=== PATIENT | male | born 1970 | race Caucasian/White ===

== ENCOUNTER 2017-03-04 13:52 | Observation (INO) | payer OTHER ==
--- NOTE | 2017-03-04 14:03 | EDPHY ---
H & P Source: Patient Exam Limitations: No limitations - Family History Significant Family History: No pertinent family hx Time Seen by Provider: 03/04/17 14:00 HPI/ROS: CHIEF COMPLAINT: AICD fired HISTORY OF PRESENT ILLNESS: The patient has a history of AICD placed 7 years ago for VT. At that point time he had a negative angiogram. 4 years ago the patient had an ablation and has been asymptomatic since that time. Today he was playing soccer when his AICD reportedly fired 15-20 times. He denied any antecedent presyncope, chest pain or shortness of breath. The patient does have a history of PVCs. The patient takes no regular medications. The patient has had no history of recent illness or additional acute complaints. REVIEW OF SYSTEMS: A comprehensive 10 point review of systems is otherwise negative aside from elements mentioned in the history of present illness. (Clay Felder) - Medical/Surgical History PMH: Past medical history: History ventricular tachycardia status AICD placement and ablation (Clay Felder) - Physical Exam Exam: General Appearance: Alert, no distress Eyes: Pupils equal and round no pallor or injection ENT, Mouth: Mucous membranes moist Respiratory: There are no retractions, lungs are clear to auscultation Cardiovascular: Regular rate and rhythm Gastrointestinal: Abdomen is soft and nontender, no masses, bowel sounds normal Neurological: A&O, normal motor function, normal sensory exam, normal cranial nerves Skin: Warm and dry, no rashes Musculoskeletal: Neck is supple nontender Extremities: symmetrical, full range of motion (Clay Felder) Constitutional: Initial Vital Signs Temperature (C) 37.3 C 03/04/17 14:19 Heart Rate 97 03/04/17 14:19 Respiratory Rate 18 03/04/17 14:19 Blood Pressure 113/76 03/04/17 14:19 O2 Sat (%) 94 03/04/17 14:19 O2 Delivery Mode Room Air Allergies/Adverse Reactions: No Known Allergies Allergy (Unverified 06/24/11 18:15) Home Medications: Medication Instructions Recorded Metoprolol Succinate Xr [Toprol Xl] 50 mg PO DAILY 06/25/11 Medical Decision Making - Diagnostics EKG Interpretation: EKG: Complete interpretation has been separately recorded in the [employer] archive. Summary impression: Sinus rhythm, right axis deviation, nonspecific EKG changes are noted (Clay Felder) ED Course/Re-evaluation: The patient was placed on a monitor and storage bin tender. He has had no subsequent discharges of his AICD. The patient's EKG demonstrates a sinus rhythm with right axis deviation. Consultation was made with the [employer] rep who will interrogate the patient's pacemaker. I have also notified Dr. Heydi Diamond of the patient's presents to the emergency department and presenting symptoms. The noted to have mild hypokalemia. He did receive oral potassium replacement. A [employer] rep will get the patient AICD. Disposition will depend not resolved. The patient will be turned over to Dr. Augustin at shift change pending evaluation by the [employer] rep. (Clay Felder) The pacemaker has been interrogated and it is found that 1 of the leads for the AICD is not in correct position and was firing erroneously. Dr. Diamond is here to see the patient and she would like the patient admitted to her to telemetry on PCU and then the patient will have lead revision tomorrow. The AICD is currently turned off (Nigel Augustin) Differential Diagnosis: Differential diagnosis considered includes SVT, atrial fibrillation, ventricular tachycardia, ventricular fibrillation, symptomatic PVCs (Clay Felder) erroneus shock secondary to be lead placement (Nigel Augustin) - Data Points Laboratory Results: Laboratory Results 03/04/17 13:58 03/04/17 13:58 03/04/17 03/04/17 13:58 13:58 WBC 6.72 10^3/uL 10^3/uL (3.80-9.50) RBC 5.44 10^6/uL 10^6/uL (4.40-6.38) Hgb 17.1 g/dL g/dL (13.7-17.5) Hct 47.7 % % (40.0-51.0) MCV 87.7 fL fL (81.5-99.8) MCH 31.4 pg pg (27.9-34.1) MCHC 35.8 g/dL g/dL (32.4-36.7) RDW 12.7 % % (11.5-15.2) Plt Count 160 10^3/uL 10^3/uL (150-400) MPV 10.7 fL fL (8.7-11.7) Neut % (Auto) 54.9 % % (39.3-74.2) Lymph % (Auto) 34.1 % % (15.0-45.0) [place] % (Auto) 5.8 % % (4.5-13.0) Eos % (Auto) 3.9 % % (0.6-7.6) Baso % (Auto) 0.9 % % (0.3-1.7) Nucleat RBC Rel Count 0.0 % % (0.0-0.2) Absolute Neuts (auto) 3.69 10^3/uL 10^3/uL (1.70-6.50) Absolute Lymphs (auto) 2.29 10^3/uL 10^3/uL (1.00-3.00) Absolute Monos (auto) 0.39 10^3/uL 10^3/uL (0.30-0.80) Absolute Eos (auto) 0.26 10^3/uL 10^3/uL (0.03-0.40) Absolute Basos (auto) 0.06 10^3/uL 10^3/uL (0.02-0.10) Absolute Nucleated RBC 0.00 10^3/uL 10^3/uL (0-0.01) Immature Gran % 0.4 % % (0.0-1.1) Immature Gran # 0.03 10^3/uL 10^3/uL (0.00-0.10) Sodium 143 mEq/L mEq/L (134-144) Potassium 3.0 mEq/L L mEq/L (3.5-5.2) Chloride 103 mEq/L mEq/L (97-110) Carbon Dioxide 16 mEq/l L mEq/l (22-31) Anion Gap 24 mEq/L H mEq/L (8-16) BUN 12 mg/dL mg/dL (7-23) Creatinine 1.3 mg/dL mg/dL (0.7-1.3) Estimated GFR 60 Glucose 146 mg/dL H mg/dL (70-100) Calcium 9.5 mg/dL mg/dL (8.5-10.4) Magnesium 1.7 mg/dL mg/dL (1.6-2.3) Medications Given: Discontinued Medications Sodium Chloride (Ns) 1,000 mls @ 0 mls/hr IV EDNOW ONE; Wide Open PRN Reason: Protocol Stop: 03/04/17 14:57 Last Admin: 03/04/17 15:19 Dose: 1,000 mls Potassium Chloride (Potassium Chloride Oral Liquid) 40 meq PO EDNOW ONE Stop: 03/04/17 14:58 Last Admin: 03/04/17 15:17 Dose: 40 meq Departure - Departure Disposition: [facility] Clinical Impression: AICD malfunction Qualifiers: Encounter type: initial encounter Qualified Code(s): T82.118A - Breakdown ( mechanical) of other cardiac electronic device, initial encounter Condition: Good Referrals: Unknown,Unknown [Unknown] - As per Instructions
[2017-03-04 14:10] LABS: % IMMATURE GRANULYOCYTES 0.4 % (0.0-1.1); ABSOLUTE IMMATURE GRANULOCYTES 0.03 10^3/uL (0.00-0.10); ADD DIFF? NO; ADD MORPH? NO; ADD SCAN? NO; ATYPICAL LYMPHOCYTE FLAG 0 (0-99); FRAGMENT RBC FLAG 0 (0-99); HEMATOCRIT 47.7 % (40.0-51.0); HEMOGLOBIN 17.1 g/dL (13.7-17.5); LEFT SHIFT FLG 0 (0-99); LIPEMIA HEMOLYSIS FLAG 90 (0-99); MEAN CELL HEMOGLOBIN 31.4 pg (27.9-34.1); MEAN CELL HEMOGLOBIN CONCENTR. 35.8 g/dL (32.4-36.7); MEAN CELL VOLUME 87.7 fL (81.5-99.8); MEAN PLATELET VOLUME 10.7 fL (8.7-11.7); PLATELET CLUMPS FLAG 0 (0-99); PLATELET COUNT 160 10^3/uL (150-400); RED BLOOD CELL COUNT 5.44 10^6/uL (4.40-6.38); RED CELL DISTRIBUTION WIDTH 12.7 % (11.5-15.2)
--- NOTE | 2017-03-04 14:10 | CPEKG ---
Heart Rate: 93 RR Interval: 645 P-R Interval: 196 QRSD Interval: 100 QT Interval: 352 QTC Interval: 438 P [place]: 56 QRS [place]: 143 T Wave [place]: 3 EKG Severity - BORDERLINE ECG - EKG Impression: SINUS RHYTHM EKG Impression: RIGHT AXIS DEVIATION Electronically Signed By: Clay Felder 04-Mar-2017 15:11:04
[2017-03-04 14:42] LABS: ANION GAP 24 mEq/L (8-16); CALCIUM 9.5 mg/dL (8.5-10.4); CARBON DIOXIDE 16 mEq/l (22-31); CHLORIDE 103 mEq/L (97-110); CREATININE 1.3 mg/dL (0.7-1.3); GLOMERULAR FILTRATION RATE 60; GLUCOSE 146 mg/dL (70-100); MAGNESIUM 1.7 mg/dL (1.6-2.3); SODIUM 143 mEq/L (134-144)
[2017-03-04] MEDS ORDERED: NS 1,000 ML IV ONE (14:56)
[2017-03-04] MEDS ORDERED: POTASSIUM CL 20 MEQ/15 ML UDCUP PO ONE (14:57)
[2017-03-04] MEDS ORDERED: ONDANSETRON DISINTEGRATING 4 MG TAB PO PRN (16:08)
[2017-03-04] MEDS ORDERED: ACETAMINOPHEN 325 MG TAB PO PRN (16:08)
[2017-03-04] MEDS ORDERED: ONDANSETRON 4 MG/2 ML VIAL IVP PRN (16:08)
[2017-03-04 16:21] LABS: INR 1.05 (0.83-1.16); PROTIME(PATIENT) 13.6 SEC (12.0-15.0)
[2017-03-04 16:22] LABS: APTT 28.4 SEC (23.0-38.0)
--- NOTE | 2017-03-04 16:45 | GHP ---
[f rep st] HISTORY AND PHYSICAL DATE OF ADMISSION: 03/04/2017 PRIMARY VOCATIONAL EVALUATOR: Dean Oliver MD. PRIMARY CARE PHYSICIAN: Dr. Stiven Krishnan. CHIEF COMPLAINT: Implantable cardioverter-defibrillator discharge. HISTORY OF PRESENT ILLNESS: The patient is a very pleasant 46-year-old male with a history of idiopa thic VT. His history dates to 2006 when he had syncope while playing soccer. This occurred again in 2010. He has had normal stress tests. In 2011, he had a normal coronary angiogram and went on to h ave an EP study with Dr. Oliver which demonstrated inducible VT. At that time, he had a single-chamber [employer] ICD implanted. In October of 2011, he received shocks from his ICD. He was briefly on amioda arley and then switched back to metoprolol. In December 2011, he was seen by Dr. Eric Herring at the [facility] and underwent VT ablation. He had 2 PVC morphologies and had an ablation in the RV basal sept um to the tricuspid valve anulus. He has not had ICD discharge or demonstrable VT since that time. Other evaluation has included no significant mutations on CPVT genetic testing. Normal cardiac MRI. In 2012, he was having problems with T-wave over sensing and T-wave suppression was activated. The patient was in his normal state of good health and playing soccer today. He was having no sympto ms including no chest pain, palpitations, or presyncope. His ICD discharged 10 times in rapid succes rosita and he was brought to the emergency department. He never lost consciousness. He is currently i n sinus rhythm. I met him in the department and was at the bedside during his [employer] device inter rogation. In summary, he was shocked 10 times for what appears to be sinus tachycardia with T-wave over sensing . The lead impedance is normal. His pacing capture threshold is slightly high. Going back to 2011, the last time he had VT was right around the time of his ablation in December 2011. He currently feels fine, but is anxious about further ICD discharge. Again, no chest pain, palpitati ons, dyspnea, or loss of consciousness. REVIEW OF SYSTEMS: A full 10-point review was performed, was negative except that which is outlined in history of present illness. PAST MEDICAL HISTORY: 1. Idiopathic VT, status post ablation and ICD. 2. Dyslipidemia. OUTPATIENT MEDICATIONS: Statin, the patient does not recall dose. He is currently not on beta block er. SOCIAL HISTORY: The patient is single. He is an electrical designer drafter. He does not smoke cigarettes, drink alcohol to excess, nor does he drink caffeine. FAMILY HISTORY: Negative for arrhythmia. PHYSICAL EXAMINATION: VITAL SIGNS: Blood pressure 113/76, heart rate 97, oxygen saturation 94% on r oom air. He is afebrile. GENERAL: Well-appearing middle-aged male in no acute distress. HEENT: S clerae are clear and free of jaundice. Mucous members are moist. Normocephalic, atraumatic. CARDIO VASCULAR: JVP is less than 10. Carotids equal and 2+ without bruit. Regular rate and rhythm withou t murmur, rub, or gallop. LUNGS: Clear to auscultation without wheezes, rhonchi, or rales. ABDOMEN : Soft, nontender, nondistended without bruits, masses, or hepatosplenomegaly. EXTREMITIES: Warm a nd well perfused without cyanosis, clubbing, or edema. NEURO: Alert and oriented x3 without gross f ocal neurological deficits. Appropriate mood and affect. LABORATORY DATA: CBC is normal. Sodium 143, potassium 3, chloride 103, bicarb 16, BUN 12, creatinin e 1.3, glucose 146, magnesium 1.7. He did receive oral potassium supplementation in the emergency de partment. EKG from the ambulance shows sinus rhythm and occasional PVCs. EKG in the emergency department, revi ewed by me, shows sinus rhythm. Small inferior Q-waves Right axis deviation. Nonspecific interventr icular conduction delay. Normal QT interval. ASSESSMENT AND PLAN: A 46-year-old male with history of idiopathic ventricular tachycardia status po st ventricular tachycardia ablation in 2011 and [employer] single-chamber implantable cardioverter-def ibrillator. He now presents with multiple inappropriate implantable cardioverter-defibrillator shock s due to T-wave over sensing when his [place] rhythm was sinus tachycardia. In discussion with the [employer] paper sales representative, he already has T-wave suppression algorithm, and the re does not appear to be any other programming changes we can do to avoid this problem in the future. 1. History of ventricular tachycardia with malfunctioning implantable cardioverter-defibrillator girma byrne: For now, his defibrillator function is off. He will be observed on telemetry. I will discuss th e case with Dr. Rubio Sorto regarding lead revision. The patient, at this point, is considering pot entially leaving device therapies off. I explained that would leave him without the backup of his im plantable cardioverter-defibrillator. No indication for beta blockers at the present. Replete maxx sium. 2. We will also check an echocardiogram and a chest x-ray to ensure that lead position is normal. N ormal impedance of the lead is reassuring. He will be n.p.o. after midnight. 3. Dyslipidemia: Continue outpatient statin. 4. Low potassium: Replete. Repeat in the morning. /[id number]/MODL
[2017-03-04] MEDS ORDERED: PRAVASTATIN SODIUM 40 MG TAB PO SCH (21:00)
[2017-03-05 04:57] LABS: ALANINE AMINOTRANSFERASE 42 IU/L (21-72); ALBUMIN 3.5 g/dL (3.5-5.0); ALKALINE PHOSPHATASE 58 IU/L (38-126); ANION GAP 8 mEq/L (8-16); ASPARTATE AMINOTRANSFERASE 42 IU/L (17-59); BILIRUBIN,TOTAL 0.9 mg/dL (0.1-1.4); CALCIUM 9.1 mg/dL (8.5-10.4); CARBON DIOXIDE 25 mEq/l (22-31); CHLORIDE 108 mEq/L (97-110); CREATININE 1.1 mg/dL (0.7-1.3); GLOMERULAR FILTRATION RATE > 60; GLUCOSE 89 mg/dL (70-100); POTASSIUM 3.7 mEq/L (3.5-5.2); SODIUM 141 mEq/L (134-144)
--- NOTE | 2017-03-05 09:23 | CPEKG ---
Heart Rate: 67 RR Interval: 896 P-R Interval: 208 QRSD Interval: 108 QT Interval: 420 QTC Interval: 444 P [place]: 55 QRS [place]: 52 T Wave [place]: 12 EKG Severity - ABNORMAL ECG - EKG Impression: SINUS RHYTHM EKG Impression: INCOMPLETE RIGHT BUNDLE BRANCH BLOCK Electronically Signed By: Helder Kessler 06-Mar-2017 13:41:58
--- NOTE | 2017-03-05 11:26 | ASMTCMCOM ---
CM Note CM Note Notes: 03/05/2017 Case Management Note Met w/pt. Pt to have ICD repair today. Provided emergency contact phone numbers for pt since pt was transported urgently without any of his belongings. Pt to call family to arrange for visits and belongings to be bought to the hospital. No case management d/c needs identified d/t family support, pt age and activity levels prior to admission. Case Management d/c poc: Home independent when medically stable with follow up as directed. Date Signed: 03/05/2017 11:25 AM Electronically Signed By:Marcelle Wilburn RN
[2017-03-05] MEDS ORDERED: PNEUMOCOCCAL 0.5ML VACCINE VIAL IM ONE (11:36)
[2017-03-05] MEDS ORDERED: FLU VACC QS 2017-18 (3YR+)/PF 0.5 ML SYR (FLUARIX QUAD) IM ONE (11:36)
--- NOTE | 2017-03-05 14:45 | ECHO ---
[email or web address] [address] [address] Main: [phone] Fax: Transthoracic Echocardiogram Name: FREDERICK ESCUDERO MR#: [id number] Study Date: 03/05/2017 Study Time: 09:37 AM Date of : 1970 Age: 46 year(s) Height: 180.3 cm (71 in.) Weight: 83.92 kg (185 lb.) BSA: 2.04 m2 Gender: Male Examination: Echo Indication: ICD discharge, HX of VT Image Quality: Adequate Contrast: Requested by: Heydi Diamond BP: 107 mmHg/69 mmHg Heart Rate: Rhythm: Indication: ICD discharge, HX of VT Procedure Staff Custom Framing Specialist: Hannah Chowdary Reading Physician: Heydi Diamond Requesting Provider: Conclusions: Normal size left ventricle. No LV hypertrophy. Normal global systolic LV function. EF is 65 %. No regional wall motion abnormality. Mildly dilated right ventricle. Normal RV function. There is an ICD lead noted in the right ventricle. Moderate tricuspid regurgitation is present. The pulmonary artery pressure is normal. Measurements: Chambers Valvular Assessment AV/MV Valvular Assessment TV/PV Normal Normal Normal Name Value Range Name Value Range Name Value Range Ao Cynthia (MM): 2.9 cm (2.2 cm-3.7 AV Vmax: 1.08 m/s (1 m/s-1.7 TR Vmax: 2.15 mm/s ( - ) cm) m/s) TR PGmax: 18 mmHg ( - ) IVSd (2D): 0.7 cm (0.6 cm-1.1 AV maxP mmHg ( - ) syst. PAP: 23 mmHg ( - ) cm) LVOT Vmax: 0.96 m/s (0.7 m/s-1.1 LVDd (2D): 3.8 cm (4.2 cm-5.9 m/s) cm) MV E Vmax: 0.47 m/s ( - ) LVDs (2D): 2.5 cm (2.1 cm-4 MV A Vmax: 0.49 m/s ( - ) cm) MV E/A: 0.96 ( - ) LVPWd (2D): 0.7 cm (0.6 cm-1 cm) LVEF (BP): 65 % (>=55 %) RVDd(2D): 3.9 cm (1.9 cm-3.8 cmmm) Continued Measurements: Patient: FREDERICK ESCUDERO Study Date: 03/05/2017 Page 1 of 2 09:37 AM Chambers Valvular Assessment AV/MV Valvular Assessment TV/PV Name Value Name Value Name Value LADs Lon.6 cm MV DecTime: 313 m/s CVP (est.): 5 mmHg LA Area: 14.9 cm2 MV E' Septal: 0.08 m/s LA Volume: 36 ml MV E/E' Septal: 5.90 LA Volume Index: 17.6 ml/m2 MV E/E' Lateral: 3.70 TAPSE: 2.3 cm RA Area: 21.5 cm2 Findings: Left Ventricle: Normal size left ventricle. No LV hypertrophy. Normal global systolic LV function. EF is 65 %. No regional wall motion abnormality. Normal diastolic LV function. Right Ventricle: Mildly dilated right ventricle. Normal RV function. There is an ICD lead noted in the right ventricle. Left Atrium: The left atrium is normal in size. Right Atrium: The right atrium is mildly dilated. There is an ICD lead noted in the right atrium. Mitral Valve: The mitral valve is normal in appearance and function. Trivial mitral valve regurgitation. Aortic Valve: The aortic valve is normal in appearance and function. The aortic valve is tri-leaflet. There is no aortic valve regurgitation. Tricuspid Valve: The tricuspid valve is normal in appearance and function. Moderate tricuspid regurgitation is present. The pulmonary artery pressure is normal. Pulmonic Valve: The pulmonic valve is normal in appearance and function. There is no pulmonic regurgitation seen. Aorta: The aorta is normal. Normal size aortic root measuring 2.9 cm. Pericardium: No pericardial effusion. (No Signature Object) Patient: FREDERICK ESCUDERO Study Date: 03/05/2017 Page 2 of 2 09:37 AM [id number]
--- NOTE | 2017-03-05 15:39 | PDIAF ---
- Diagnosis Code Status: Full Code - Medication Management Discharge Medications: Medications to Continue on Transfer Pravastatin Sodium 40 mg PO HS 03/04/17 [Last Taken 03/03/17] Acetaminophen [Tylenol 325mg (*)] 650 mg PO Q4HRS PRN tab 03/05/17 [Last Taken Unknown] Discharge Medications: Refer to the Discharge Home Medication list for PRN reason. - Orders Diet Recommendation: no restrictions on diet - Follow Up Care Current Providers and Referrals: Unknown,Unknown [Unknown] - As per Instructions (Tranfer to [facility], under the care of Dr Kobe Garcia for Lead Extraction and SQ AICD implant)
[2017-03-05 15:51] VITALS: O2SAT 94
--- NOTE | 2017-03-05 17:25 | ASMTCMCOM ---
CM Note CM Note Notes: 03/05/2017 Case Management Note Spoke w/ [facility]. No bed available as of yet. Transport to be arranged by [facility]. Contact [phone] for [place] Access Line. hand splitter aware, pt notified. Case Management to follow. Date Signed: 03/05/2017 05:24 PM Electronically Signed By:Marcelle Wilburn RN
[2017-03-05 18:46] VITALS: BP 116/82; PULSE 81; RESP 20; TEMP 97.6
--- NOTE | 2017-03-05 21:23 | GCON ---
[f rep st] Transfer summary REFERRING PHYSICIAN: Heydi Diamond MD CHIEF COMPLAINT: ICD discharge. HISTORY OF PRESENT ILLNESS: This is a very pleasant 46-year-old male with history of exercise-induced syncope in 2006, which was detected as idiopathic VT. They could not find the etiology earlier on; however, after 2-3 years further evaluation was done when there was a recurrence of symptoms, and the patient was noted to have VT, at which point in time, it was noted that it was coming from 4 different sites. The patient had catheterization which was normal. ICD was implanted. Patient had more ICD shocks, hence was transferred to [place] where he underwent VT ablation of 2 different morphologies at the RV basal septum. The patient has not had an ICD shock since then. Other evaluation has included significant CP VT, genetic testing. He has had a normal cardiac MRI. In 2012, he had problems with T-wave oversensing and the suppression algorithm was activated. He has been doing fine for a number of years, and he was in normal state of health, playing soccer, when, without having any symptoms of chest pain, palpitations, presyncope, or syncope, his ICD discharged multiple times in succession without having dizziness preceding or post. He never lost consciousness. He eventually came to the emergency room where he was noted to be in sinus rhythm, and [employer] evaluated the device. No VT was noted; however, inappropriate sensing of VF was noted, which led to the multiple shocks. His pacing capture was minimally elevated. Impedance was normal. He had not had ICD discharge since ablation. REVIEW OF SYSTEMS: A 10-point review of system negative other than above. PAST MEDICAL HISTORY: Idiopathic VT, dyslipidemia. OUTPATIENT MEDICATIONS: Statin. 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 FAMILY HISTORY: Negative for admit. PHYSICAL EXAMINATION: VITAL SIGNS: Blood pressure 110/70, pulse of 70, respiratory rate 16. HEENT: Pupils equal, reacting to light, accommodating. No JVD. No thyromegaly. Mucous membranes moist. Normocephalic atraumatic. CHEST: Good air entry bilaterally equal. No rales, rhonchi, or rub. S1, S2 regular. No S3. No murmurs. ABDOMEN: Soft, nontender. No guarding or rigidity. Bowel sounds present. EXTREMITIES: No edema. Warm and well perfused without cyanosis or clubbing. NEUROLOGIC: Alert and oriented x3. No gross deficit. DIAGNOSTICS: Labs are normal. EKG shows normal sinus rhythm, occasional PVC. Device interrogation evaluated and the noise noted. COURSE OF HOSPITALIZATION: The patient's device was turned off. He did not have any further shock. He did not have any further VT or VF on the telemonitor. Extensive discussion was undertaken with the patient regarding ICD replacement with or without ICD lead extraction with or without subcu ICD. The patient called multiple physicians to get a 2nd opinion about this, and eventually I had a conversation with Dr. Garcia at [place], who agreed to do ICD lead extraction with new implant. We discussed the possibility of subcutaneous ICD versus new transvenous ICD. He would consider that. At current point in time, he felt that a lead extraction is needed. We do not perform lead extractions at this hospital; hence, the patient is going to be transferred to [place] under the care of Dr. Garcia . I explained the risks and benefits of this to the patient in great detail. He is agreeable to it. We will transfer the patient to [facility]. DISCHARGE MEDICATION: Tylenol as needed, pravastatin 40 mg at bedtime. Condition of the patient at transfer is stable. /[id number]/MODL MTDD
== END 2017-03-05 19:34 | disposition short-term general hospital (02) ==
LOC: EDUNIT# → F2W 17:39
PROVIDERS: ADMIT Internal Medicine Cardiovascular Disease; ATTEND Internal Medicine Cardiovascular Disease
PROC: 3E0337Z Introduction of Electrolytic and Water Balance Substance into Peripheral Vein, Percutaneous Approach (ICD-10-PCS; principal; 2017-03-04)
DX: T82.118A Breakdown (mechanical) of other cardiac electronic device, initial encounter (principal); I47.2 Ventricular tachycardia; E78.5 Hyperlipidemia, unspecified; E87.6 Hypokalemia; Z23 Encounter for immunization
CPT/HCPCS: 71020; 90471; 93005; 93306; 96360; 99285; G0378; G0008; G0009